=== PATIENT | female | born 1980 | race Caucasian/White ===

== ENCOUNTER 2018-05-05 00:59 | Day surgery (SDC) | payer MEDICAID ==
[2018-05-05] MEDS ORDERED: NORMAL SALINE 1000 ML 1,000 ML IV ONE ×2 (01:10→03:26)
--- NOTE | 2018-05-05 01:11 | ER Document Report ---
ED General - General Stated Complaint: RIGHT FLANK PAIN Time Seen by Provider: 05/05/18 01:08 Mode of Arrival: Medic Information source: Patient TRAVEL OUTSIDE OF THE [place] IN LAST 30 DAYS: No - HPI Notes: Patient is a 37-year-old white female history of recurrent UTI and sepsis and kidney stones presents to the emergency department with report of right flank pain that came on yesterday and reports fever came on today. The patient reports having an episode of sepsis last May and in February 2016 associated with a UTI and kidney stone. The patient reports no cough or congestion or chest pain. She denies any constipation or diarrhea. The patient reports her previous pyelonephritis episodes occurred on the right side similar to the one today. Past medical history previous neck surgery, tubal ligation, tonsillectomy and a D&C. Last menstrual period was 3 weeks ago without complication. Patient denies any vaginal discharge or bleeding. Patient does report some nausea but no vomiting. In route by EMS, the patient was found to have a temperature of 102.1. The patient was given 975 of Tylenol and 30 mg of IV Toradol with a normal saline bolus. - Related Data Allergies/Adverse Reactions: nickel Allergy (Verified 03/30/18 15:33) No Known Drug Allergies Allergy (Verified 03/30/18 15:33) Past Medical History - General Information source: Patient - Social History Smoking Status: Never Smoker Frequency of alcohol use: None Drug Abuse: None Lives with: Family Family History: Reviewed & Not Pertinent Renal/ Medical History: Denies: Hx Peritoneal Dialysis Past Surgical History: Reports: Hx Orthopedic Surgery - neck surgery Review of Systems - Review of Systems -: Yes All other systems reviewed and negative Physical Exam - Notes Notes: PHYSICAL EXAMINATION: GENERAL: Well-appearing, well-nourished and in no acute distress. HEAD: Atraumatic, normocephalic. EYES: Pupils equal round and reactive to light, extraocular movements intact, conjunctiva are normal. ENT: Nares patent, oropharynx clear without exudates. Moist mucous membranes. NECK: Normal range of motion, supple without lymphadenopathy LUNGS: Breath sounds clear to auscultation bilaterally and equal. No wheezes rales or rhonchi. HEART: Regular rate and rhythm without murmurs ABDOMEN: No guarding, no rebound. No masses appreciated. Patient has pain appreciated right upper abdomen extending from the right flank region. No pulsatile mass. +/- Avina Female : deferred Musculoskeletal: Normal range of motion, no pitting or edema. No cyanosis. Right CVA tenderness noted. NEUROLOGICAL: Cranial nerves grossly intact. Normal speech, normal gait. Normal sensory, motor exams PSYCH: Normal mood, normal affect. SKIN: Warm, Dry, normal turgor, no rashes or lesions noted. Course - Re-evaluation Re-evalutation: Patient was given Zofran for nausea and morphine for pain with repeat dose of morphine with improvement in her pain. Blood cultures and a urine culture were attained on the patient. Patient had evidence for UTI and was given Rocephin IV. CT scan raised question of appendicitis. Discussion was undertaken with Dr. Little, covering for surgery who agreed to see the patient and further evaluate. 05/05/18 05:18 Repeat exam still showed some pain right mid abdominal region radiating around somewhat to the right flank. This would fit for the finding of a retrocecal appendicitis. 05/05/18 05:19 - Laboratory Result Diagrams: 05/05/18 01:25 05/05/18 01:25 Laboratory results interpreted by me: 05/05/18 05/05/18 05/05/18 01:25 01:25 01:25 WBC 16.3 H Hgb 10.8 L Hct 32.1 L RDW 14.8 H Seg Neutrophils % 79.8 H Lymphocytes % 12.9 L Absolute Neutrophils 13.0 H Sodium 134.1 L Glucose 113 H POC Glucose Lactic Acid Total Bilirubin 1.4 H AST 80 H ALT 132 H Urine Protein 30 H Urine Blood LARGE H Urine Urobilinogen 4.0 H Ur Leukocyte Esterase TRACE H 05/05/18 05/05/18 01:31 03:08 WBC Hgb Hct RDW Seg Neutrophils % Lymphocytes % Absolute Neutrophils Sodium Glucose POC Glucose 123 H Lactic Acid 0.6 L Total Bilirubin AST ALT Urine Protein Urine Blood Urine Urobilinogen Ur Leukocyte Esterase Critical Care Note - Critical Care Note Total time excluding time spent on procedures (mins): 34 Discharge - Discharge Clinical Impression: Pyelonephritis Acute appendicitis Qualifiers: Acute appendicitis type: unspecified acute appendicitis type Qualified Code(s) : K35.80 - Unspecified acute appendicitis Fever Qualifiers: Fever type: unspecified Qualified Code(s): R50.9 - Fever, unspecified Condition: Good Disposition: ADMITTED INPATIENT
[2018-05-05] MEDS ORDERED: ONDANSETRON HCL INJ/PF 4 MG/2 ML SDV IV ONE (01:29)
[2018-05-05] MEDS ORDERED: MORPHINE SULFATE 10 MG/ML INJ IV ONE ×2 (01:30→04:39)
[2018-05-05 01:41] LABS: VENOUS BLOOD BASE EXCESS -2.6 mmol/L; VENOUS BLOOD HCO3 21.6 mmol/L (20-32); VENOUS BLOOD PCO2 35.2 mmHg (35-63); VENOUS BLOOD PH 7.41 (7.30-7.42)
[2018-05-05 01:42] LABS: ABSOLUTE BASOPHILS # (AUTO) 0.1 10^3/uL (0.0-0.2); ABSOLUTE LYMPHOCYTES (AUTO) 2.1 10^3/uL (0.5-4.7); BASOPHILS % (AUTO) 0.6 % (0-2); EOSINOPHILS % (AUTO) 0.3 % (0-6); HEMATOCRIT 32.1 % (36.0-47.0); HEMOGLOBIN 10.8 g/dL (12.0-15.5); LYMPHOCYTES % (AUTO) 12.9 % (13-45); MEAN CORPUSCULAR HEMOGLOBIN 28.2 pg (27.0-33.4); MEAN CORPUSCULAR HGB CONC 33.5 g/dL (32.0-36.0); MEAN CORPUSCULAR VOLUME 84 fl (80-97); MONOCYTES % (AUTO) 6.4 % (3-13); PLATELET COUNT 240 10^3/uL (150-450); RED BLOOD COUNT 3.82 10^6/uL (3.72-5.28); RED CELL DISTRIBUTION WIDTH 14.8 % (11.5-14.0); SEGMENTED NEUTROPHILS % (AUTO) 79.8 % (42-78); TOTAL CELLS COUNTED % (AUTO) 100 %; WHITE BLOOD COUNT 16.3 10^3/uL (4.0-10.5)
[2018-05-05 01:57] LABS: ALANINE AMINOTRANSFERASE 132 U/L (9-52); ALBUMIN 3.7 g/dL (3.5-5.0); ALKALINE PHOSPHATASE 121 U/L (38-126); ANION GAP 10 (5-19); ASPARTATE AMINO TRANSFERASE 80 U/L (14-36); BILIRUBIN,DIRECT 0.4 mg/dL (0.0-0.4); BILIRUBIN,TOTAL 1.4 mg/dL (0.2-1.3); BLOOD UREA NITROGEN 14 mg/dL (7-20); CALCIUM 8.7 mg/dL (8.4-10.2); CARBON DIOXIDE 22 mmol/L (22-30); CHLORIDE 102 mmol/L (98-107); GLUCOSE 113 mg/dL (75-110); POTASSIUM 3.8 mmol/L (3.6-5.0); SODIUM 134.1 mmol/L (137-145); TOTAL PROTEIN 6.6 g/dL (6.3-8.2)
[2018-05-05 03:04] LABS: APPEARANCE,URINE TURBID; BILIRUBIN,URINE NEGATIVE (NEGATIVE); COLOR,URINE YELLOW; GLUCOSE, URINE NEGATIVE (NEGATIVE); KETONES,URINE NEGATIVE (NEGATIVE); LEUKOCYTE ESTERASE,URINE TRACE (NEGATIVE); NITRITE,URINE NEGATIVE (NEGATIVE); PROTEIN,URINE 30 mg/dL (NEGATIVE); URINE SPECIFIC GRAVITY 1.021
[2018-05-05] MEDS ORDERED: CEFTRIAXONE 2 GM/D5W RTU 2 GM/50 ML RTUPB IV ONE (03:25)
[2018-05-05] MEDS ORDERED: [UNRECOGNIZED DRUG - OTHER] IV ONE (03:49)
[2018-05-05] MEDS ORDERED: CEFTRIAXONE IV ONE (03:49)
--- NOTE | 2018-05-05 04:51 | RADIOLOGY REPORT (SQ) ---
EXAM DESCRIPTION: CT ABDOMEN PELVIS WITHOUT IV CONTRAST COMPLETED DATE/TME: 05/05/2018 01:27 CLINICAL HISTORY: R flank pain and fever, hx kidney stones COMPARISON: 03/30/2018 TECHNIQUE: CT of the abdomen and pelvis without IV contrast. Evaluation of the solid organs and vasculature is suboptimal due to lack of IV contrast. DLP: 589.72 mGy-cm FINDINGS: Lung Bases: The visualized lung bases are clear. Bones: No destructive bone lesions identified. Abdomen: Liver: The liver has normal size and density. Gallbladder: No calcified gallstones. Spleen, Pancreas, and Adrenal Glands: The spleen, pancreas, and adrenal glands are unremarkable. Kidneys: The kidneys have normal size and contour without evidence of hydronephrosis. No obstructing ureteral calculi. Vasculature: The aorta and IVC have normal caliber and position. Stomach: The stomach and duodenum have normal course. Other: No free intraperitoneal air. No free fluid or lymphadenopathy. Pelvis: Bladder: Urinary bladder is unremarkable. Bowel: No dilated loops of large or small bowel. Appendix: Mild dilation of the proximal appendix with periappendiceal inflammatory change. The appendix is retrocecal and runs between the ascending colon and right kidney. Pelvis: Uterus is not enlarged. IMPRESSION: 1. Mild dilation of the proximal appendix with periappendiceal inflammatory change. These findings could be seen with early acute appendicitis. 2. The above-described inflammatory changes are also adjacent to the kidney. Pyelonephritis also remains a differential consideration. Urinalysis may be helpful. 3. No obstructing ureteral calculus identified. Urgent finding reported to Dr. Astorga at 05/05/2018 3:40 AM CDT This exam was performed according to our departmental dose-optimization program, which includes automated exposure control, adjustment of the mA and/or kV according to patient size and/or use of iterative reconstruction technique.
[2018-05-05] MEDS ORDERED: NORMAL SALINE 1000 ML 1,000 ML IV PRN (06:12)
[2018-05-05] MEDS ORDERED: ERTAPENEM SODIUM INJ 1 GM VIAL IV ONE (06:12)
--- NOTE | 2018-05-05 06:12 | PDOC H&P ---
History of Present Illness Patient complains of: Right flank pain History of Present Illness: ALAN SANDOVAL is a 37 year old female presenting with right flank and right lateral mid abdominal pain. Patient was feeling well yesterday until the evening when she began to experience pain in the right flank radiating to the right mid lateral abdomen followed by fevers and chills. Patient denies any dysuria. She denies any hematuria. She has had had a history of pyelonephritis with sepsis couple of times in the past. Current symptoms are somewhat similar but not identical as her prior episodes. She has some nausea but no emesis. She also has malaise. Past Medical History Cardiac Medical History: Reports: Other - History of PVCs. Pulmonary Medical History: Reports: Asthma Psychiatric Medical History: Reports: Depression - depression. PTSD. Past Surgical History Past Surgical History: Reports: Orthopedic Surgery - neck surgery, Tonsillectomy , Tubal Ligation Social History Lives with: Family Smoking Status: Current Some Day Smoker Frequency of Alcohol Use: Rare - Heavy alcohol use in the past but none recently. Family History Family History: Reviewed & Not Pertinent Parental Family History Reviewed: No Children Family History Reviewed: No Sibling(s) Family History Reviewed.: No Medication/Allergy Home Medications: Ibuprofen [Motrin 600 mg Tablet] 600 mg PO Q8HP PRN #21 tablet 03/30/18 Sertraline HCl [Zoloft] 100 mg PO DAILY 03/30/18 Allergies/Adverse Reactions: nickel Allergy (Verified 03/30/18 15:33) No Known Drug Allergies Allergy (Verified 03/30/18 15:33) Review of Systems Cardiovascular: PRESENT: other - Patient suffers from chronic chest discomfort. Currently having this discomfort. Physical Exam Vital Signs: Intake & Output 05/03/18 05/04/18 05/05/18 06:59 06:59 06:59 Intake Total 1000 Balance 1000 General appearance: PRESENT: no acute distress, cooperative Eye exam: PRESENT: conjunctiva pink Neck exam: PRESENT: other - Supple with no masses and no tenderness Respiratory exam: PRESENT: clear to auscultation geeta Cardiovascular exam: PRESENT: RRR - With frequent premature contractions. GI/Abdominal exam: PRESENT: other - Soft, nondistended, moderate tenderness in the right mid abdomen without peritoneal signs. No significant right upper quadrant tenderness. No CVA tenderness. Extremities exam: PRESENT: other - No swelling and no tenderness. Neurological exam: PRESENT: alert, awake Psychiatric exam: PRESENT: anxious Skin exam: PRESENT: warm Results Laboratory Results: 05/05/18 01:25 05/05/18 01:25 05/05/18 05/05/18 05/05/18 01:25 01:25 01:25 WBC 16.3 H RBC 3.82 Hgb 10.8 L Hct 32.1 L MCV 84 MCH 28.2 MCHC 33.5 RDW 14.8 H Plt Count 240 Seg Neutrophils % 79.8 H Lymphocytes % 12.9 L Monocytes % 6.4 Eosinophils % 0.3 Basophils % 0.6 Absolute Neutrophils 13.0 H Absolute Lymphocytes 2.1 Absolute Monocytes 1.0 Absolute Eosinophils 0.0 Absolute Basophils 0.1 VBG pH VBG pCO2 VBG HCO3 VBG Base Excess Sodium 134.1 L Potassium 3.8 Chloride 102 Carbon Dioxide 22 Anion Gap 10 BUN 14 Creatinine 0.82 Est GFR ( Amer) > 60 Est GFR (Non-Af Amer) > 60 Glucose 113 H Lactic Acid Calcium 8.7 Total Bilirubin 1.4 H AST 80 H ALT 132 H Alkaline Phosphatase 121 Total Protein 6.6 Albumin 3.7 Serum HCG, Qual NEGATIVE Urine Color Urine Appearance Urine pH Ur Specific [place] Urine Protein Urine Glucose (UA) Urine Ketones Urine Blood Urine Nitrite Ur Leukocyte Esterase Urine WBC (Auto) Urine RBC (Auto) 05/05/18 05/05/18 05/05/18 01:25 01:25 03:08 WBC RBC Hgb Hct MCV MCH MCHC RDW Plt Count Seg Neutrophils % Lymphocytes % Monocytes % Eosinophils % Basophils % Absolute Neutrophils Absolute Lymphocytes Absolute Monocytes Absolute Eosinophils Absolute Basophils VBG pH 7.41 VBG pCO2 35.2 VBG HCO3 21.6 VBG Base Excess -2.6 Sodium Potassium Chloride Carbon Dioxide Anion Gap BUN Creatinine Est GFR ( Amer) Est GFR (Non-Af Amer) Glucose Lactic Acid 0.6 L Calcium Total Bilirubin AST ALT Alkaline Phosphatase Total Protein Albumin Serum HCG, Qual Urine Color YELLOW Urine Appearance TURBID Urine pH 5.0 Ur Specific [place]se[place] 1.021 Urine Protein 30 H Urine Glucose (UA) NEGATIVE Urine Ketones NEGATIVE Urine Blood LARGE H Urine Nitrite NEGATIVE Ur Leukocyte Esterase TRACE H Urine WBC (Auto) 8 Urine RBC (Auto) 27 Impressions: Abdomen/Pelvis CT 05/05/18 01:27 IMPRESSION: 1. Mild dilation of the proximal appendix with periappendiceal inflammatory change. These findings could be seen with early acute appendicitis. 2. The above-described inflammatory changes are also adjacent to the kidney. Pyelonephritis also remains a differential consideration. Urinalysis may be helpful. 3. No obstructing ureteral calculus identified. Urgent finding reported to Dr. Astorga at 05/05/2018 3:40 AM CDT This exam was performed according to our departmental dose-optimization program, which includes automated exposure control, adjustment of the mA and/or kV according to patient size and/or use of iterative reconstruction technique. Assessment & Plan - Diagnosis (1) Acute appendicitis Qualifiers: Acute appendicitis type: unspecified acute appendicitis type Qualified Code (s): K35.80 - Unspecified acute appendicitis Is this a current diagnosis for this admission?: Yes Plan: Likely appendicitis although cannot entirely exclude pyelonephritis. The retrocecal location of the appendix may explain the patient's symptoms. I have had a long discussion with the patient concerning the risk and benefits of laparoscopic appendectomy versus observation. I have recommended appendectomy to the patient. She understands risk of mistaken diagnosis, infection, bleeding , adjacent structure injury, stump leak, conversion to an open procedure or hand -assisted procedure. She agrees to proceed. She drank tiny brenner within the last hour. I will admit her placed on IV antibiotics and will perform her surgery later this morning. She does have a frequent PVCs and some chest discomfort. Therefore I will obtain an EKG and a troponin as well.
--- NOTE | 2018-05-05 07:45 | EKG REPORT ---
SEVERITY:- ABNORMAL ECG - SINUS TACHYCARDIA VENTRICULAR BIGEMINY PROBABLE LEFT ATRIAL ABNORMALITY MINIMAL ST DEPRESSION, LATERAL LEADS : Confirmed by: Bharath Moreau MD 05-May-2018 07:44:43
[2018-05-05] MEDS ORDERED: ACETAMINOPHEN 650 MG SUPP.RECT PR ONE (08:28)
[2018-05-05] MEDS ORDERED: MORPHINE SULFATE 10 MG/ML INJ ONE ×3 (08:29→17:17)
[2018-05-05] MEDS ORDERED: GLYCOPYRROLATE 1 MG/5 ML SYRINGE ONE (08:35)
[2018-05-05] MEDS ORDERED: SUCCINYLCHOLINE CHLORIDE INJ 200 MG/10 ML VIAL ONE (08:35)
[2018-05-05] MEDS ORDERED: ROCURONIUM BROMIDE INJ 50 MG/5 ML VIAL IV ONE (08:35)
[2018-05-05] MEDS ORDERED: NEOSTIGMINE METHYLSULFATE 10 MG/10 ML VIAL ONE (08:35)
[2018-05-05] MEDS ORDERED: ERTAPENEM SODIUM 1 GM in NORMAL SALINE 50 ML IV ONE (10:00)
[2018-05-05] MEDS ORDERED: SERTRALINE HCL 50 MG TABLET PO SCH (10:00)
--- NOTE | 2018-05-05 10:06 | XCELERA REPORT ---
[address] [address] Transthoracic Echocardiogram Report Name: ALAN SANDOVAL Age: 37 yrs Gender: Female : 1980 Patient Status: Inpatient Patient Location: [address] [place] [address] Study Date: 05/05/2018 08:47 AM Procedure: A two-dimensional transthoracic echocardiogram with color flow and Doppler was performed. Study Quality: Fair. But no good subcostal views. Reason For Study: MR / Preoperative cardiac risk assessment History: MR / Preoperative cardiac risk assessment. Ordering Physician: AMIRA CASTANO Performed By: Rebeca Azevedo Interpretation Summary The left ventricle is normal in size. There is normal left ventricular wall thickness. LV EF is 60% Left ventricular systolic function is normal. Doppler measurements suggest normal left ventricular diastolic function The left ventricular wall motion is normal. There is no thrombus. The right ventricle is normal in size and function. The right atrium is normal. The left atrial size is normal. The mitral valve leaflets appear thickened, but open well. There is no evidence of mitral valve prolapse. There is no vegetation seen on the mitral valve. There is no mitral valve stenosis. There is a trace amount of mitral regurgitation There is no aortic valvular vegetation. There is no aortic valve stenosis No aortic regurgitation is present. There is no tricuspid stenosis. There is a mild amount of tricuspid regurgitation Upper normal to early mild pulmonary hypertension.RVSP is 30 to 35 mm of Hg , with RA mean of 5 to 10. There is no pulmonic valvular stenosis. There is no pulmonic valvular regurgitation. The aortic root is normal size. The inferior vena cava appeared normal and decreased > 50% with respiration (RAP 5-10 mmHg) There is no pericardial effusion. MMode/2D Measurements & Calculations RVDd: 2.9 cm LVIDd: 5.1 cm FS: 38.8 % Ao root diam: 2.1 cm IVSd: 0.78 cm LVIDs: 3.1 cm EDV(Teich): 123.6 ml Ao root area: 3.5 cm2 LVPWd: 0.77 cm ESV(Teich): 38.5 ml EF(Teich): 68.8 % Doppler Measurements & Calculations MV E max ant: MV dec slope: Ao V2 max: LV V1 max P.3 cm/sec 188.0 cm/sec 7.2 mmHg MV A max ant: 651.0 cm/sec2 Ao max PG: LV V1 max: 83.3 cm/sec MV dec time: 0.17 sec14.1 mmHg 134.4 cm/sec MV E/A: 1.3 PA V2 max: TR max ant: 156.2 cm/sec 247.3 cm/sec PA max P.8 mmHg TR max P.5 mmHg Left Ventricle The left ventricle is normal in size. There is normal left ventricular wall thickness. LV EF is 60%. Left ventricular systolic function is normal. Doppler measurements suggest normal left ventricular diastolic function. The left ventricular wall motion is normal. There is no thrombus. Right Ventricle The right ventricle is normal in size and function. Atria The right atrium is normal. The left atrial size is normal. Mitral Valve The mitral valve leaflets appear thickened, but open well. There is no evidence of mitral valve prolapse. There is no vegetation seen on the mitral valve. There is no mitral valve stenosis. There is a trace amount of mitral regurgitation. Aortic Valve There is no aortic valvular vegetation. There is no aortic valve stenosis. No aortic regurgitation is present. Tricuspid Valve There is no tricuspid stenosis. There is a mild amount of tricuspid regurgitation. Upper normal to early mild pulmonary hypertension.RVSP is 30 to 35 mm of Hg , with RA mean of 5 to 10. Pulmonic Valve There is no pulmonic valvular stenosis. There is no pulmonic valvular regurgitation. Great Vessels The aortic root is normal size. The inferior vena cava appeared normal and decreased > 50% with respiration (RAP 5-10 mmHg). Effusions There is no pericardial effusion. : AMIRA CASTANO > Amira Castano
[2018-05-05] MEDS ORDERED: DEXAMETHASONE SOD PHOSPHATE INJ 4 MG/1 ML VIAL ONE (10:42)
[2018-05-05] MEDS ORDERED: ONDANSETRON HCL INJ/PF 4 MG/2 ML SDV ONE (10:42)
[2018-05-05] MEDS ORDERED: MIDAZOLAM 2 MG/2 ML INJ ONE (10:42)
[2018-05-05] MEDS ORDERED: FENTANYL CITRATE INJ/PF 100 MCG/2 ML AMPUL ONE (10:42)
[2018-05-05] MEDS ORDERED: ACETAMINOPHEN 1,000 MG/100 ML RTUPB IV ONE (10:43)
[2018-05-05] MEDS ORDERED: PROPOFOL INJ 200 MG/20 ML VIAL IV ONE (10:43)
[2018-05-05] MEDS ORDERED: BUPIVACAINE HCL 0.5 % INJ/PF 30 ML SDV ONE (11:03)
--- NOTE | 2018-05-05 11:32 | Progress Note ---
Provider Note Provider Note: CARDIOLOGY PRELIMINARY NOTE: Formal consult to follow. Patient seen at 10 AM on 05/05/2018. Patient was interviewed and examined. Impression: 1. Clinically and by echo no significant mitral regurgitation. Note patient's left ventricle ejection fraction is normal. 2. Clinically no coronary artery disease. 3. Acute appendicitis for surgery. 4. History of depression. 5. History of PVCs, but no dizziness or syncope. 6. Preoperative cardiac risk assessment for appendectomy. RECOMMENDATION: Patient will be mild/acceptable cardiac risk for the surgery. We will follow the patient postoperatively. Discussed with Dr. Larose, the surgical list, and discussed with the patient patient's .
[2018-05-05] MEDS ORDERED: DIPHENHYDRAMINE HCL 50 MG/ML VIAL IV PRN (12:01)
[2018-05-05] MEDS ORDERED: MORPHINE SULFATE 10 MG/ML INJ IV PRN (12:01)
[2018-05-05] MEDS ORDERED: FENTANYL CITRATE INJ/PF 100 MCG/2 ML AMPUL IV PRN ×3 (12:01)
[2018-05-05] MEDS ORDERED: PROMETHAZINE HCL INJ 25 MG/1 ML VIAL IV PRN ×2 (12:01)
--- NOTE | 2018-05-05 13:29 | Operative Report ---
Operative Report DATE OF SURGERY: 05/05/18 PREOPERATIVE DIAGNOSIS: Appendicitis POSTOPERATIVE DIAGNOSIS: Appendicitis OPERATION: Laparoscopic hand-assisted appendectomy SURGEON: LUKE WHITE ANESTHESIA: GA TISSUE REMOVED OR ALTERED: Appendix COMPLICATIONS: None ESTIMATED BLOOD LOSS: 20 cc INTRAOPERATIVE FINDINGS: Retrocecal appendix with this tip riding high near the hepatic flexure with the distal aspect with firmness and distention consistent with early appendicitis versus chronic appendicitis. Normal-appearing liver and gallbladder and right and transverse colon otherwise. Normal-appearing ileum. Normal-appearing bilateral ovaries. Uterine fibroids noted. PROCEDURE: Informed consent was obtained. Patient was brought to the operating room and placed on the operating room table in the supine position. After satisfactory induction of general anesthesia patient's abdomen was prepped and draped in usual sterile fashion. A supraumbilical midline incision was made and dissection carried down through the fascia and the peritoneal cavity entered without difficulty. Dickson trocar was inserted and pneumoperitoneum produced with good patient toleration. A 5 mm trocar was placed in the right lateral abdomen lateral to the rectus above the level of the umbilicus. Another 5 mm trocar was placed in the left lateral abdomen lateral to the rectus below the level of the umbilicus. The patient was placed in a Trendelenburg position with the right side up. The colon was distended but otherwise appeared normal. The cecum did ride high to near the splenic flexure. The liver appeared normal as did the gallbladder as did the right and proximal transverse colon other than the high riding position of the cecum. The cecum was mobilized along the line of Toldt. As was the right colon. Due to the distention of the colon and its position exposure was difficult. In inspecting the retroperitoneal region the appendix was not readily apparent. With the difficulty of exposure and the inability to see the appendix after lateral mobilization of the right colon, I converted the case to a hand-assisted case. A lower midline incision was made and dissection was carried down through the fascia and a laparoscopic hand port was inserted. With the exposure afforded by my hand, I was able to identified the appendix which felt firm and distended at the distal aspect. The appendix was mobilized off of its fairly dense adhesions to the retroperitoneum taking great care to avoid injury to the underlying and adjacent structures. As the dissection was carried down toward the base of the appendix the mesoappendix was taken with clips. The appendiceal cecal junction was clearly identified and using a Endo SHONNA stapling device the appendix was taken flush with the cecum. Hemostasis appeared excellent and the stump closure appeared excellent. The ileum was inspected and and it appeared normal. Both of the ovaries were visualized and they appeared normal. The uterus had fibroids. No anterior abdominal wall abnormalities were noted on the right side. Liver appeared normal and the gallbladder felt normal. The appendix was removed through the laparoscopic hand port. All trochars were removed under the direct vision of the laparoscope to ensure hemostasis. The Dickson trocar site fascial defect was closed with interrupted Vicryl sutures. The hand port fascial defect was closed with running PDS suture. Marcaine was injected at the incision site. All skin incisions were closed with subcuticular Monocryl sutures. Patient tolerated procedure well with no apparent complications and was taken to the recovery area in stable condition.
[2018-05-05] MEDS ORDERED: SODIUM PHOS,M-BASIC-D-BASIC 15 MMOL in NORMAL SALINE 250 ML IV ONE (15:00)
[2018-05-05] MEDS: SERTRALINE HCL 50 MG TABLET PO SCH (15:07)
[2018-05-05] MEDS: NORMAL SALINE 1000 ML 1,000 ML IV PRN (15:07)
[2018-05-05] MEDS: MORPHINE SULFATE 10 MG/ML INJ IV PRN ×3 (15:21→20:12)
--- NOTE | 2018-05-05 20:29 | PDOC PROGRESS REPORT ---
Subjective Progress Note for:: 05/05/18 Subjective:: Right flank and right mid abdominal pain has markedly improved after operation. Complain of pain at the lower abdominal incision site. Reason For Visit: APPENDICITIS Physical Exam Vital Signs: Temp Pulse Resp BP Pulse Ox 97.8 F 66 16 108/64 95 05/05/18 20:00 05/05/18 20:00 05/05/18 20:00 05/05/18 20:00 05/05/18 20:00 Intake & Output 05/04/18 05/05/18 05/06/18 06:59 06:59 06:59 Intake Total 4478 Output Total 175 Balance 4303 Weight 79.5 kg General appearance: PRESENT: no acute distress, cooperative Respiratory exam: PRESENT: clear to auscultation geeta Cardiovascular exam: PRESENT: RRR GI/Abdominal exam: PRESENT: other - Soft, nondistended, minimal tenderness in the right mid abdomen much improved from preop. Mild incisional tenderness. Results Laboratory Results: 05/05/18 05/05/18 06:15 06:15 Phosphorus 2.1 L Magnesium 2.0 05/05/18 06:15 Troponin I < 0.012 Impressions: Abdomen/Pelvis CT 05/05/18 01:27 IMPRESSION: 1. Mild dilation of the proximal appendix with periappendiceal inflammatory change. These findings could be seen with early acute appendicitis. 2. The above-described inflammatory changes are also adjacent to the kidney. Pyelonephritis also remains a differential consideration. Urinalysis may be helpful. 3. No obstructing ureteral calculus identified. Urgent finding reported to Dr. Astorga at 05/05/2018 3:40 AM CDT This exam was performed according to our departmental dose-optimization program, which includes automated exposure control, adjustment of the mA and/or kV according to patient size and/or use of iterative reconstruction technique. Assessment & Plan - Diagnosis (1) Acute appendicitis Qualifiers: Acute appendicitis type: unspecified acute appendicitis type Qualified Code (s): K35.80 - Unspecified acute appendicitis Is this a current diagnosis for this admission?: Yes Plan: Status post laparoscopic hand-assisted appendectomy. Patient looks good postoperatively. Will likely be at the discharge patient home in the morning. Will treat her for possible UTI as an outpatient at discharge.
--- NOTE | 2018-05-05 22:52 | PDOC CONSULTATION ---
Consultation-Blank Consultation: CARDIOLOGY CONSULTATION by Dr. Amira Clinton. Patient seen at 10:30 AM on . REASON FOR CONSULTATION: Patient with a history of mitral regurgitation, frequent PVCs, for preoperative cardiac risk assessment for appendectomy which is urgent as per surgical list. HISTORY OF PHYSICAL ILLNESS: Patient is a 37-year-old female with known prior history of pyelonephritis admitted with abdominal pain and fever and with nausea and vomiting. She has been diagnosed as having acute appendicitis, although the CT scan suggested differential diagnosis is pyelonephritis also. The surgical history is does not determined that the patient has acute appendicitis and is for urgent appendectomy. The patient states that when she had sepsis secondary to pyelonephritis in the recent past she was told she had mitral regurgitation. At that time she states she was told that she needed no treatment, but needed cardiology follow-up. This the patient had not obtained. The patient also notes that she has a history of PVCs. She does feel palpitations but otherwise it does not bother her. There is no history of coronary artery disease, chest pains or anginal symptoms. There is no history of shortness of breath PND orthopnea. She has a history of asthma. There is no history of hypertension or diabetes mellitus. There is no history of congenital heart disease. There is no history of diabetes mellitus or thyroid disease. PAST MEDICAL HISTORY: Denies hypertension. No history of coronary artery disease. Told she has had mitral regurgitation, has no heart failure. She does have palpitations and there is known to have PVCs, but no dizziness or syncope or sudden . She has no history of diabetes mellitus. She has a history of asthma very infrequent episodes. She does not remember the last time she had an acute asthmatic attack. There is no history of chronic kidney disease. Past surgical history: Is positive for tubal ligation. C-spine surgery. FAMILY HISTORY: Is positive for coronary artery disease history of [place]. But there is no premature coronary artery disease in the family. SOCIAL HISTORY: The patient is occasional smoker. There is no history of EtOH abuse. ALLERGIES: The patient is allergic to nickel. DISPOSITION: The patient is a full code. Her is a surrogate healthcare decision maker. REVIEW OF SYMPTOMS: CONSTITUTIONAL: She does have a history of fever and generalized fatigue. HEAD: Denies headaches or head injury. EYES: No history of amblyopia diplopia no history of amaurosis fugax. EARS: No history of hearing loss, no tinnitus. No vertigo. NOSE: No history of nosebleeds. No history of hayfever. MOUTH: No history of altered taste sensation. No ulcers in the mouth. No bleeding from the gums. THROAT: No history of odynophagia or dysphagia. No history of recurrent sore throats. SKIN: No history of pruritus. No history of yellowish discoloration of the skin. No history of psoriasis. NECK: History of C-spine surgery. No history of neck pain. No swelling in the neck. No goiter. LUNGS: History of asthma. No recent acute exacerbation of asthmatic attacks. No history of COPD. No history of sleep apnea no history of pulmonary embolism. No symptoms of upper or lower respiratory tract infections. No wheezing. No cough or sputum production. No pleuritic chest pain. No hemoptysis. HEART: History of PVCs present though this does not bother her. No syncope or sudden . No history of congestive heart failure. No history of coronary artery disease. She was told she had mitral regurgitation when she had sepsis. But has not been treated for that. No history of hypertension. No history of congenital heart disease. No history of PND orthopnea. MILD PALPITATIONS PRESENT. Abdomen: Nausea vomiting present with right upper quadrant pain. Patient being for surgery. No history of hepatitis. The patient does have some mildly abnormal liver function tests. No history of GI bleed. ENDOCRINE: No history of diabetes mellitus. No history of thyroid disease. No history of polydipsia polyuria no history of heat or cold intolerance. MUSCULOSKELETAL: History of C-spine surgery due to C- spine fracture in the past. No history of collagen vascular disease. RENAL: No history of hematuria pyuria or dysuria. No history of chronic kidney disease. ASSOCIATE PROFESSOR OF MUSIC: No history of CVA. No history of headaches migraines or seizures. No history of sleep apnea. No history of gait imbalance. PSYCHIATRIC: She was diagnosed with a post depression. And is on treatment for depression with the patient being able to lead a normal life on medication. She also has a history of posttraumatic stress disorder. This is also under control. There is no suicidal ideation. There is no homicidal ideation. VASCULAR: No history of calf or buttock claudication. No history of DVT. HEMATOLOGICAL: No history of blood dyscrasias. No history of bleeding diathesis. No history of clotting disorders. PHYSICAL EXAMINATION: The patient at present is mildly obese. She is in no acute distress. She is well-groomed. Selected Entries 05/05/18 10:36 Temperature 98.5 F Pulse Rate 103 H Respiratory 24 H Rate Blood Pressure 98/60 L [Upper Arm] O2 Sat by Pulse 100 Oximetry Oxygen Delivery Room Air Method ( includes room air) HEAD: Head is atraumatic normocephalic. EYES: Pupils are equal round regular, reactive to light accommodation. Extraocular movements are normal. There is no palatal pallor. There is no scleral icterus. EARS: TYMPANIC MEMBRANES ARE INTACT. EXTERNAL AUDITORY CANALS ARE CLEAR. NOSE: There is no deviated nasal septum. There is no inflammation of the nasal mucous membrane. MOUTH: Mucous membranes of the mouth and tongue are moist. There is no ulcers in the mouth. There is no bleeding from the gums. THROAT: There is no redness of the oropharynx. There is no exudates of the throat. SKIN: There is no skin rashes or skin lesions. Is no petechia or ecchymosis. NECK: Neck is supple there is no JVD. Carotids are equal there is no bruit. There is no lymphadenopathy there is no goiter. Trachea central. There is no accessory muscles of respiration use. LUNGS: Lungs are clear to auscultation percussion without any rhonchi rales or wheezing. There is no chest wall tenderness on palpation. HEART: S1-S2 is heard there is no S3 gallop there is no S4 gallop the systolic murmur left sternal border and the apex there is a murmur systolic murmur in the left and the apex without any radiation. There is no significant mitral regurgitation murmur. There is no rub. ABDOMEN is soft there is tenderness in the right lower quadrant of the abdomen. There is no guarding rebound or rigidity. There is no hepatosplenomegaly. Bowel sounds well heard. EXTREMITIES: Femorals are deep. Femorals are Mildly decreased. There is no femoral bruits. Leg pulses are well felt. There is no pedal edema. There is no DVT or cellulitis. There is no sinus or clubbing. ASSOCIATE PROFESSOR OF MUSIC: The patient is conscious awake alert oriented x3 with no focal deficits. PSYCHIATRIC: The patient's judgment and insight are intact her affect is normal. 05/05/18 05/05/18 05/05/18 01:25 01:25 01:25 WBC 16.3 H Hgb 10.8 L Hct 32.1 L Plt Count 240 Sodium 134.1 L Potassium 3.8 Chloride 102 Carbon Dioxide 22 BUN 14 Creatinine 0.82 Est GFR (Non-Af Amer) > 60 Glucose 113 H Calcium 8.7 Total Bilirubin 1.4 H Direct Bilirubin 0.4 Neonat Total Bilirubin Not Reportable Neonat Direct Bilirubin Not Reportable Neonat Indirect Bili Not Reportable AST 80 H ALT 132 H Alkaline Phosphatase 121 Troponin I Total Protein 6.6 Albumin 3.7 Serum HCG, Qual NEGATIVE 05/05/18 06:15 WBC Hgb Hct Plt Count Sodium Potassium Chloride Carbon Dioxide BUN Creatinine Est GFR (Non-Af Amer) Glucose Calcium Total Bilirubin Direct Bilirubin Neonat Total Bilirubin Neonat Direct Bilirubin Neonat Indirect Bili AST ALT Alkaline Phosphatase Troponin I < 0.012 Total Protein Albumin Serum HCG, Qual THE patient EKG shows sinus rhythm, with probable left atrial enlargement. Frequent PVCs. There is no acute ischemia on the EKG. The patient's CT scan of the abdomen shows appendicitis, with a differential diagnosis of pyelonephritis. ECHOCARDIOGRAM shows: Normal left ventricular wall thickness wall motion and ejection fraction. The left ventricle is of normal size. There is trace mitral regurgitation. Left atrial size is upper normal. There is trace there is mild mitral regurgitation with no pulmonary hypertension. There is no aortic stenosis or aortic regurgitation. There is no pericardial effusion. IMPRESSION: 1. Acute and appendicitis for urgent appendectomy. 2. PVCS: This may be secondary to increased catecholamine release due to the patient's acute infection and the patient being slightly anxious. Also secondary to patient's pain. She is at low risk for sudden . She is also at low risk for developing any troublesome ventricular arrhythmias. 3. MITRAL REGURGITATION: At present only trace. This is not clinically significant. 4. History of asthma. At present remained stable. 5. History of depression: Continue the patient's current antidepressant. 6. Preoperative cardiac risk assessment. Continue current treatment including antibiotics. The patient will be a mild cardiac risk for the surgery. No further cardiac workup is needed. Discussed the echo findings with the patient patient's . Discussed with athletic other caregiving providers on the case medical decision making is of moderate complexity. Will follow the patient is an outpatient since she desires to follow-up with me for monitoring the patient's mitral regurgitation. Discussed with the surgicallist. 60 minutes spent on this patient with more than 50% of the time spent in direct patient care.
[2018-05-06] MEDS: MORPHINE SULFATE 10 MG/ML INJ IV PRN ×3 (00:32→07:42)
[2018-05-06] MEDS: NORMAL SALINE 1000 ML 1,000 ML IV PRN (00:33)
[2018-05-06] MEDS: SERTRALINE HCL 50 MG TABLET PO SCH (09:48)
[2018-05-06] MEDS ORDERED: LEVOFLOXACIN 500 MG TABLET PO SCH (10:00)
[2018-05-06] MEDS ORDERED: HYDROCODONE/ACETAMINOPHEN 5-325 MG TABLET PO PRN (11:44)
[2018-05-06] MEDS ORDERED: IBUPROFEN 800 MG TABLET PO SCH (12:00)
--- NOTE | 2018-05-06 16:12 | PDOC DISCHARGE SUMMARY ---
General - Admit/Disc Date/PCP Admission Date/Primary Care Provider: 05/05/18 06:09 Discharge Date: 05/06/18 - Discharge Diagnosis (1) Acute appendicitis Is this a current diagnosis for this admission?: Yes - Additional Information Resuscitation Status: Full Code Discharge Diet: As Tolerated Discharge Activity: No Lifting Over 10 Pounds Home Medications: Sertraline HCl 200 mg PO DAILY 05/05/18 History of Present Illness History of Present Illness: ALAN SANDOVAL is a 37 year old female admitted with right lower quadrant pain. She was found to have appendicitis. She was taken to the operating room for appendectomy. Hospital Course Hospital Course: The patient was taken to the operating room for laparoscopic, hand-assisted appendectomy. The patient was taken to the floor in stable condition afterwards. The patient has been ambulating, tolerating a diet, and doing well. Her only complaint was an inability to urinate. The patient had a Nicolas catheter placed. The patient has had issues with urination after surgery before. The patient is requesting discharge home. I will discharge her home with a Nicolas and leg bag. I will see her in the office in 1 week to remove the Nicolas catheter. Physical Exam Vital Signs: Temp Pulse Resp BP Pulse Ox 97.6 F 75 16 108/71 94 05/06/18 12:08 05/06/18 12:08 05/06/18 12:08 05/06/18 12:08 05/06/18 12:08 Intake & Output 05/05/18 05/06/18 05/07/18 06:59 06:59 06:59 Intake Total 5421 1113 Output Total 675 100 Balance 4746 1013 Weight 79.5 kg Results Laboratory Results: 05/05/18 06:15 Troponin I < 0.012 Impressions: Abdomen/Pelvis CT 05/05/18 01:27 IMPRESSION: 1. Mild dilation of the proximal appendix with periappendiceal inflammatory change. These findings could be seen with early acute appendicitis. 2. The above-described inflammatory changes are also adjacent to the kidney. Pyelonephritis also remains a differential consideration. Urinalysis may be helpful. 3. No obstructing ureteral calculus identified. Urgent finding reported to Dr. Astorga at 05/05/2018 3:40 AM CDT This exam was performed according to our departmental dose-optimization program, which includes automated exposure control, adjustment of the mA and/or kV according to patient size and/or use of iterative reconstruction technique. Qualifiers - * PATIENT BEING DISCHARGED WITH ANY OF THE FOLLOWING DIAGNOSIS: No Plan Discharge Plan: Discharge home. Diet as tolerated. Activity: No lifting greater than 10 pounds x 6 weeks. [place] 5/325 mg p.o. every 6 hours as needed for pain. Levaquin 500 mg p.o. daily times 7 days. Follow-up at [facility] in 1 week. Time Spent: Less than 30 Minutes
[2018-05-06 16:43] VITALS: BP 98/60
== END 2018-05-06 17:14 | disposition home or self-care (01) ==
LOC: ER 00:59 → UNDOADMIN 06:09 → EH 06:09 → ER 06:12 → OROUT 06:12 → 5 07:32 → EH 07:32 → OROUT 05-06 17:14 → UNDODISIN 05-06 17:14
PROVIDERS: ATTEND Surgery
DX: K35.80 Unspecified acute appendicitis (principal); Z23 Encounter for immunization; R00.2 Palpitations; I49.3 Ventricular premature depolarization; I34.0 Nonrheumatic mitral (valve) insufficiency; R50.9 Fever, unspecified; N12 Tubulo-interstitial nephritis, not specified as acute or chronic; J45.909 Unspecified asthma, uncomplicated; F17.210 Nicotine dependence, cigarettes, uncomplicated; Z79.899 Other long term (current) drug therapy; Z79.1 Long term (current) use of non-steroidal anti-inflammatories (NSAID); Z86.79 Personal history of other diseases of the circulatory system
CPT/HCPCS: 93005; 96376; 99291; 96361; 96375; 96365; 36415; 87040; 87086; 82962; 83735; 84100; 84703; 85025; 87088; 80053; 81001; 84484; 87186; 82803; 83605; 88304 ×2; 93306; 74176; 90686; 93010; 44970; G0008; J3490 ×9; J2250; J1100; J3010; J1335; J2270 ×2; J0330; J2405; J7030 ×2; J7050; J2704; J0696; J0131; 840; 90471